=== PATIENT | male | born 1985 | race Caucasian/White ===

== ENCOUNTER 2017-08-31 13:55 | Emergency (ER) | payer OTHER ==
[2017-08-31 14:18] VITALS: BP 110/73; PULSE 78; TEMP 98.4; BMI 20.2
[2017-08-31] MEDS ORDERED: IBUPROFEN 600 MG TABLET (FP) PO ONE ×2 (16:04→16:10)
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
== END 2017-08-31 16:21 | disposition home or self-care (01) ==
LOC: JERFT 13:55
DX: S00.83XA Contusion of other part of head, initial encounter (principal); S00.03XA Contusion of scalp, initial encounter; S10.83XA Contusion of other specified part of neck, initial encounter; S30.0XXA Contusion of lower back and pelvis, initial encounter; S20.229A Contusion of unspecified back wall of thorax, initial encounter; Y04.2XXA Assault by strike against or bumped into by another person, initial encounter; Y93.89 Activity, other specified; Y92.032 Bedroom in apartment as the place of occurrence of the external cause; Y99.8 Other external cause status; Y07.410 Brother, perpetrator of maltreatment and neglect
CPT/HCPCS: 99281-25

== ENCOUNTER 2024-04-23 17:03 | Emergency (ER) | payer OTHER ==
[2024-04-23 17:13] VITALS: BP 118/87; PULSE 85; RESP 18; TEMP 98.4; BMI 24.0
[2024-04-23 18:49] LABS: BASO % 0.2 % (0-2.0); EOS % 0.6 % (0-4.5); HEMATOCRIT 46.6 % (35.4-49); HEMOGLOBIN 15.2 GM/dL (11.7-16.9); LYMPH % 6.7 % (8-40); MCH 29.9 pg (25.7-33.7); MCHC 32.6 g/dl (32.0-35.9); MEAN CELL VOLUME 91.8 fl (80-96); MEAN PLT VOLUME 8.4 fl (7.5-11.1); MONO % 4.9 % (3.8-10.2); NEUT % 87.6 % (42.8-82.8); PLATELET COUNT 226 10^3/uL (134-434); RBC 5.08 M/mm3 (4.00-5.60); RDW 13.4 % (11.9-15.9); WHITE BLOOD COUNT 9.5 K/mm3 (4.0-10.0)
[2024-04-23 19:02] LABS: POTASSIUM 4.2 mmol/L (3.5-5.1)
[2024-04-23 19:04] LABS: ALBUMIN 3.6 g/dl (3.4-5.0); CALCIUM 8.5 mg/dL (8.5-10.1)
[2024-04-23 19:08] LABS: CREATININE 0.8 mg/dL (0.55-1.3)
[2024-04-23 19:09] LABS: TOT PROT 6.1 g/dl (6.4-8.2)
[2024-04-23 19:59] LABS: HIV INTERPRETATION NEGATIVE (NEGATIVE)
== END 2024-04-24 09:20 | disposition home or self-care (01) ==
LOC: JER 17:03
DX: R11.2 Nausea with vomiting, unspecified (principal); R19.7 Diarrhea, unspecified; R05.9 Cough, unspecified; R09.89 Other specified symptoms and signs involving the circulatory and respiratory systems; R53.81 Other malaise; B34.9 Viral infection, unspecified; Z20.822 Contact with and (suspected) exposure to COVID-19
CPT/HCPCS: 0241U-QW; 36415; 71046-TC-FY; 80053; 85025; 86803; 87389; 99284-25